=== PATIENT | female | born 1965 | race Caucasian/White ===

== ENCOUNTER → 2020-09-02 14:26 | Outpatient (CLI) | payer MEDICARE, MEDICAID | END | disposition home or self-care (01) | LOC: D.LAB 14:26 | PROVIDERS: ATTEND Internal Medicine Pulmonary Disease | DX: Z11.52 Encounter for screening for COVID-19 (principal) ==

== ENCOUNTER → 2020-09-07 13:06 | Outpatient (CLI) | payer MEDICARE, MEDICAID ==
[2020-09-07 14:33] LABS: BASOPHILS 0.6 % (0-2); EOSINOPHILS 5.6 % (0-7); HEMATOCRIT 40.1 % (36.0-48.0); HEMOGLOBIN 13.2 g/dL (12-16); LYMPHOCYTES 30.5 % (15-50); MCH 30.6 pg (26.0-34.0); MCHC 32.9 g/dL (31.0-37.0); MEAN PLATELET VOLUME 7.8 fL (7.4-10.4); NEUTROPHILS 56.3 % (40-80); PLATELET COUNT 246 10x3/uL (130-400); RBC 4.31 10x6/uL (4.00-5.40); RDW 15.3 % (11.5-14.5); WBC 5.9 10x3/uL (4.8-10.8)
[2020-09-08 09:13] LABS: IMMUNOGLOBULIN A 178 mg/dL (87-352); IMMUNOGLOBULIN G 1120 mg/dL (586-1602)
[2020-09-09 06:11] LABS: IGG SUBCLASS 1 507 mg/dL (248-810); IGG SUBCLASS 2 510 mg/dL (130-555); IGG SUBCLASS 3 42 mg/dL (15-102); IGG SUBCLASS 4 66 mg/dL (2-96); IGGS - IGG SERUM 1131 mg/dL (586-1602)
[2020-09-09 14:11] LABS: IMMUNOGLOBULIN E 364 IU/mL (6-495)
== END | disposition home or self-care (01) ==
LOC: D.RT 13:00
PROVIDERS: ATTEND Internal Medicine Pulmonary Disease
DX: J44.9 Chronic obstructive pulmonary disease, unspecified (principal)